=== PATIENT | male | born 2000 | race Caucasian/White ===

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

== ENCOUNTER 2022-04-27 09:50 | Observation (INO) | payer OTHER ==
[2022-04-27 10:03] VITALS: BMI 44.8
[2022-04-27] MEDS ORDERED: KETOROLAC TROMETHAMINE 30 MG/1 ML VIAL IVPUSH ONE (10:34)
[2022-04-27] MEDS ORDERED: SODIUM CHLORIDE 1,000 ML IV STA (10:34)
[2022-04-27] MEDS ORDERED: AMPICILLIN NA/SULBACTAM NA 3 GM in SODIUM CHLORIDE 100 ML IVPB ONE (10:36)
[2022-04-27] MEDS ORDERED: KETOROLAC TROMETHAMINE 30 MG/1 ML VIAL ONE (10:56)
[2022-04-27 11:31] LABS: BASO % 0.6 % (0-2.0); EOS % 0.3 % (0-4.5); HEMATOCRIT 40.8 % (35.4-49); HEMOGLOBIN 13.6 GM/dL (11.7-16.9); LYMPH % 24.6 % (8-40); MCH 28.1 pg (25.7-33.7); MCHC 33.3 g/dl (32.0-35.9); MEAN CELL VOLUME 84.5 fl (80-96); MEAN PLT VOLUME 8.2 fl (7.5-11.1); MONO % 11.5 % (3.8-10.2); PLATELET COUNT 257 10^3/uL (134-434); RBC 4.83 M/mm3 (4.00-5.60); RDW 14.6 % (11.9-15.9); WHITE BLOOD COUNT 10.1 K/mm3 (4.0-10.0)
[2022-04-27 11:56] LABS: ALBUMIN 3.6 g/dl (3.4-5.0); BLOOD UREA NITROGEN 7.1 mg/dL (7-18); CALCIUM 9.1 mg/dL (8.5-10.1)
[2022-04-27 11:59] LABS: CREATININE 0.8 mg/dL (0.55-1.3)
[2022-04-27 12:01] LABS: BILIRUBIN,TOTAL 0.4 mg/dL (0.2-1)
[2022-04-27 16:58] VITALS: TEMP 98.9
[2022-04-27 19:19] VITALS: BP 150/90; PULSE 109; RESP 19
== END 2022-04-27 19:15 | disposition short-term general hospital (02) ==
LOC: JERFT 09:50 → JER 09:50 → JERBED 15:22
PROVIDERS: ADMIT Internal Medicine; ATTEND Internal Medicine
PROC: 3E03329 Introduction of Other Anti-infective into Peripheral Vein, Percutaneous Approach (ICD-10-PCS; principal; 2022-04-27)
PROC: 3E0337Z Introduction of Electrolytic and Water Balance Substance into Peripheral Vein, Percutaneous Approach (ICD-10-PCS; 2022-04-27)
PROC: 3E0333Z Introduction of Anti-inflammatory into Peripheral Vein, Percutaneous Approach (ICD-10-PCS; 2022-04-27)
PROC: 0C94XZZ Drainage of Buccal Mucosa, External Approach (ICD-10-PCS; 2022-04-27)
DX: K04.7 Periapical abscess without sinus (principal); L03.211 Cellulitis of face; E66.01 Morbid (severe) obesity due to excess calories; Z68.41 Body mass index [BMI] 40.0-44.9, adult
CPT/HCPCS: 36415; 41800; 70487-TC; 80053; 85025; 87040; 87070; 87205; 96361; 96365; 96375; 99285-25; C9803-CS; G0378; Q9967; U0003; U0005